=== PATIENT | female | born 1945 | race Caucasian/White ===

== ENCOUNTER 2018-10-25 06:17 | Day surgery (SDC) | END 2018-10-26 08:56 | disposition home or self-care (01) ==

== ENCOUNTER 2019-01-29 06:12 | Day surgery (SDC) | payer OTHER ==
--- NOTE | 2019-01-28 13:05 | PREOPHP ---
DATE OF ADMISSION: 01/29/2019 HISTORY OF PRESENT ILLNESS: This 73-year-old patient is admitted for elective cataract surgery of th e left eye. The patient has previously had progressive deterioration of vision in both eyes due to c ataract formation and a history of chronic open angle glaucoma, being treated with latanoprost and br imonidine drops in both eyes. The patient's systemic history is entirely within normal limits, and t he patient is not on any systemic medication. THERE ARE NO KNOWN ALLERGIES. The patient underwent c ataract surgery of the right eye 3 months ago with excellent visual result. PHYSICAL EXAMINATION: The visual acuity with best correction is 20/25 in the right eye and 20/70 in the left eye. Slit lamp examination reveals a posterior chamber intraocular lens in appropriate posi tion in the right eye and a nuclear sclerotic cataract with vacuolar changes in the left eye. Applan ation tonometry is 15 mmHg. Examination of the retina reveals optic disc cupping due to the chronic glaucoma in both eyes. DIAGNOSIS: Nuclear sclerotic cataract, left eye. PLAN: Cataract extraction with lens implant, left eye. 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 The patient understands this an d agrees to proceed with surgery in hopes of improving visual acuity, leading to greater ability to p erform activities of daily living. Dictated By: IWONA BRANDT/LEA Conf#: [id number] DID#: [id number]
[2019-01-29] VITALS (11 sets, daily range): BP systolic 102–133; BP diastolic 45–63; PULSE 60–75; RESP 14–27; Ht 160 cm; Wt 71.3 kg
[~2019-01-29] VITALS: Ht 160 cm; Wt 71.3 kg
[~2019-01-29 06:12] MED LIST: CYCLOPENTOLATE/PHENYLEPH 2 ML OPH OPER SCH; DICLOFENAC 0.1% 2.5 ML OPH OPER SCH; MOXIFLOXACIN 0.5% 3 ML OPH OPER SCH; SOD CHLORIDE 0.9% 1,000 ML IV SCH; TROPICAMIDE 1% 15 ML OPH OPER SCH
[2019-01-29] MEDS ORDERED: CEFAZOLIN 1 GM INJ ONE (06:51)
[2019-01-29] MEDS ORDERED: LIDOCAINE 4% (MPF) 5 ML INJ ONE (06:51)
[2019-01-29] MEDS ORDERED: CARBACHOL 0.01% 1.5 ML OPH INJ ONE (06:52)
[2019-01-29] MEDS ORDERED: DEXAMETHASONE 4 MG/ML 1 ML INJ ONE (06:52)
[2019-01-29] MEDS ORDERED: EPINEPHrine 1 MG INJ ONE (06:52)
[2019-01-29] MEDS ORDERED: NA HYALURONATE/CHONDROITIN 0.5 ML SYG ONE (06:52)
[2019-01-29] MEDS ORDERED: TETRACAINE 0.5% 4 ML OPH ONE (06:52)
[2019-01-29] MEDS ORDERED: GENTAMICIN 80 MG INJ ONE (06:52)
--- NOTE | 2019-01-29 07:20 | PREAC ---
Date/Time of Note Date/Time of Note DATE: 01/29/19 TIME: : Anesthesia Eval and Record Evaluation Time Pre-Procedure Interview DATE: 01/29/19 TIME: : Age 73 Sex female NPO: 8 hrs Preoperative diagnosis left eye cataract Planned procedure Cataract extraction with lens implant, left eye Past Medical History Past Medical History: None Surgery & Anesthesia Issues No known issue Meds Anticoagulation: No Beta Sena within 24 hr: No Reason Beta Sena not given: Pt. not on B-Sena No Active Prescriptions or Reported Meds Current Medications Diclofenac Sodium (Voltaren 0.1%) 1 drop Q5 MIN X 3 OPER Last administered on 01/29/19at 06:34; Admin Dose 1 DROP; Start 01/29/19 at 06:00 Tropicamide (Mydriacyl 1%) 1 drop Q5 MIN X3 OPER Last administered on 01/29/19at 06:34; Admin Dose 1 DROP; Start 01/29/19 at 06:00 Moxifloxacin HCl (Vigamox) 1 drop Q5 MIN X 3 OPER Last administered on 01/29/19at 06:33; Admin Dose 1 DROP; Start 01/29/19 at 06:00 Cyclopentolate/ Phenylephrine (Cyclomydril Oph 2 ml) 1 drop Q5 MIN X 3 OPER Last administered on 01/29/19at 06:34; Admin Dose 1 DROP; Start 01/29/19 at 06:00 Sodium Chloride 1,000 ml @ 25 mls/hr Q24H IV Last administered on 01/29/19at 06:34; Admin Dose 25 MLS/HR; Start 01/29/19 at 06:00 Meds reviewed: Yes Allergies Coded Allergies: No Known Drug Allergies (Verified Allergy, Unknown, 01/29/19) Allergies Reviewed: Yes Labs/Studies Labs Reviewed: Reviewed by anesthesiologist test: N/A Studies: ECG (nsr), CXR (no acute disease) Pre-procedure Exam Last vitals Vital Signs Date Temp Pulse Resp B/P (MAP) Pulse Ox O2 O2 Flow FiO2 Time Delivery Rate 01/29/19 96.8 75 18 113/52 95 Room Air 06:50 (72) Airway: Adequate mouth opening, Adequate thyromental dist Mallampati: Mallampati II Teeth: Normal Lung: Normal Heart: Normal ASA Physical Status ASA physical status: 1 Emergency: None Planned Anesthetic General/MAC: Mask Planned Pain Management Parenteral pain med Pre-operative Attestations Prior to commencing anesthesia and surgery, the patient was re-evaluated, there was verification of: *The patient's identity *The results of appropriate recent lab work and preoperative vital signs *The above evaluation not changing prior to induction *Anesthetic plan, risk benefits, alternative and complications discussed with patient/family; questions answered; patient/family understands, accepts and wishes to proceed. GIAN XAVIER MD Jan 29, 2019 07:20
[2019-01-29] MEDS ORDERED: MIDAZOLAM 1 MG/ML 2 ML INJ ONE (07:34)
[2019-01-29] MEDS ORDERED: FENTAnyl 50 MCG/ML VIAL ONE (07:34)
[2019-01-29] MEDS ORDERED: DIPHENHYDRAMINE 50 MG INJ IV PRN (08:00)
[2019-01-29] MEDS ORDERED: OXYCODONE/ACETAMINOPHEN (5/325) TAB PO PRN (08:00)
[2019-01-29] MEDS ORDERED: HYDROmorphONE 1 MG/5 ML IV SYRINGE IV PRN ×2 (08:00)
[2019-01-29] MEDS ORDERED: ONDANSETRON 4 MG INJ IV PRN (08:00)
[2019-01-29] MEDS ORDERED: PROCHLORPERAZINE 10 MG INJ IV PRN (08:00)
[2019-01-29] MEDS ORDERED: FENTAnyl 50 MCG/ML VIAL IV PRN (08:00)
[2019-01-29] MEDS ORDERED: MEPERIDINE 25 MG INJ IV PRN (08:00)
[2019-01-29] MEDS ORDERED: PROPOFOL 20 ML ONE (08:11)
--- NOTE | 2019-01-29 08:16 | SIPON ---
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
--- NOTE | 2019-01-29 08:21 | PAC ---
Date/Time of Note Date/Time of Note DATE: 01/29/19 TIME: 08:20 Post-Anesthesia Notes Post-Anesthesia Note Last documented vital signs Vital Signs Date Temp Pulse Resp B/P (MAP) Pulse Ox O2 O2 Flow FiO2 Time Delivery Rate 01/29/19 96.8 75 18 113/52 95 Room Air 06:50 (72) Activity: WNL Respiratory function: WNL Cardiovascular function: WNL Mental status: Baseline Pain reasonably controlled: Yes Hydration appropriate: Yes Nausea/Vomiting absent: Yes Comments BP: 130/63 HR: 63 RR: 15 T: 98 SaO2: 96%GIAN LUCAS MD Jan 29, 2019 08:21
--- NOTE | 2019-01-29 09:02 | OPR ---
DATE OF OPERATION: 01/29/2019 POSTOPERATIVE DIAGNOSIS: Nuclear sclerotic cataract, left eye. POSTOPERATIVE DIAGNOSIS: Nuclear sclerotic cataract, left eye. OPERATION PERFORMED: Cataract extraction with lens implant, left eye. ANESTHESIA: MAC. PROCEDURE: The patient was brought to the operating room and placed on the table with an IV in place and the patient attached to an security monitor. Oxygen was given via face mask. After some intravenous sedation was administered, local anesthesia was given using Xylocaine 2% with epinephrine, mixed with Marcaine 0.5%. This was given in a lid block and retrobulbar injection. The patient was then prepped and draped in the usual sterile manner. A wire lid speculum was inserted between the lids of the left eye. A Superblade was used to enter th e anterior chamber at the corneoscleral limbus at the 10:30 o'clock position. A separate incision wa s made using a 3.0-mm keratome which entered the corneoscleral junction at the 12 o'clock position. Through this 3-mm opening, an irrigating cystotome was introduced into the anterior chamber. The kimberly mber was filled with Viscoat and an anterior capsulotomy was performed. Balanced salt solution was t hen used for hydrodissection of the lens. A phacoemulsification handpiece was then brought into the field and introduced into the anterior chamber. The lens nucleus was emulsified using a deep groove and cracking the nucleus into quadrants. Following this, each quadrant was aspirated and emulsified at the pupillary margin. After this was completed, the irrigation/aspiration handpiece was brought to the field, introduced in to the posterior chamber, and the lens cortical material was removed. When this was completed, addit ional Viscoat was injected into the anterior and posterior chambers. The 3-mm opening had its internal lips enlarged, and then the posterior chamber intraocular lens baudilio uring 24.0 diopters ([employer] model LI61AO) was then injected into the posterior c hamber using the lens injector system. After the leading haptic was introduced into the capsular bag and the lens optic was present in the center of the eye, the injector was removed and the trailing h aptic was grasped with non-toothed forceps and introduced into the capsular fold superiorly. A [place] ey hook was then used to rotate the intraocular lens so that the lips were oriented in the horizontal meridian. One 10-0 nylon suture was placed across the wound. Prior to tying, the irrigation/aspiration handpiece was reintroduced into the anterior chamber to rem ove the Viscoat. Miochol was instilled to constrict the pupil, and then the 10-0 nylon suture was ti ed. The ends were cut short and then the knot was buried. Then, 0.5 mL of dexamethasone and 0.5 mL of Ancef were injected into the sub-Tenon space in the infer ior fornix. Ciloxan drops were then placed on the surface of the eye. The speculum was removed and a patch was applied. The patient then left the operating room in satisfactory condition. Dictated By: IWONA BRANDT/LEA Conf#: [id number] DID#: [id number] CC: IWONA SEGUNDO MD;*EndCC*
== END 2019-01-29 10:13 | disposition home or self-care (01) ==
LOC: SDS 06:12
PROVIDERS: ATTEND Ophthalmology
DX: H25.12 Age-related nuclear cataract, left eye (principal)
CPT/HCPCS: 66984; J0171; J0690; J1100; J1580; J2250; J3010; V2632; Z7512; Z7610